=== PATIENT | female | born 1945 | race Caucasian/White ===

== ENCOUNTER → 2019-02-10 | Outpatient (CLI) | payer MEDICARE ==
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
== END | disposition home or self-care (01) ==
LOC: RAD 09:10
PROVIDERS: ATTEND Family Medicine
DX: M50.322 Other cervical disc degeneration at C5-C6 level (principal); M51.34 Other intervertebral disc degeneration, thoracic region; I70.0 Atherosclerosis of aorta
CPT/HCPCS: 71120; 72072

== ENCOUNTER → 2019-12-24 | Outpatient (CLI) | payer MEDICARE ==
--- NOTE | 2019-12-24 10:40 | RAD ---
CT scan of the chest without contrast 12/24/2019 CLINICAL HISTORY: Chest and sternal pain. TECHNIQUE: Unenhanced, contiguous, 0.625 mm axial sections were obtained through the chest and upper abdomen. 3 mm reconstructed sagittal, axial and coronal images were obtained. One or more of the following individualized dose reduction techniques were utilized for this study: 1. Automated exposure control. 2. Adjustment of the mA and/or kV according to patient size. 3. Use of iterative reconstruction technique. FINDINGS: Comparison is made to the patient's radiographs of the sternum dated 02/10/2019. Scattered atherosclerotic calcification of the thoracic aorta and its branches is noted. The thoracic aorta tapers normally. The heart is normal in size. Small calcified hilar and mediastinal lymph nodes are noted. A 6 mm calcification is seen involving the right lobe of the thyroid gland. The visualized thyroid gland is small but slightly heterogeneous. Small areas of scarring are seen involving the apices of both lungs. Subsegmental atelectasis is seen involving the medial aspect of the both lower lobes and the right middle lobe. A small area of probable scarring is involving left lower lobe. A 6 mm calcified granuloma is seen involving the right middle lobe. No area of consolidation is seen. No pneumothorax or pleural effusion is seen. Images through the upper abdomen demonstrate scattered atherosclerotic calcification of the abdominal aorta. Degenerative changes are seen involving the thoracic spine. The osseous structures are intact. No sternal fracture is seen. IMPRESSION: No acute abnormality is seen. Electronically signed by: Gagan Del Angel MD (12/24/2019 10:38 AM) [id number]
== END | disposition home or self-care (01) ==
LOC: CT 08:39
PROVIDERS: ATTEND Family Medicine
DX: S22.22XG Fracture of body of sternum, subsequent encounter for fracture with delayed healing (principal); I70.0 Atherosclerosis of aorta; J98.11 Atelectasis; M47.814 Spondylosis without myelopathy or radiculopathy, thoracic region; J84.10 Pulmonary fibrosis, unspecified; X58.XXXD Exposure to other specified factors, subsequent encounter
CPT/HCPCS: 71250

== ENCOUNTER → 2020-06-20 | Outpatient (CLI) | payer MEDICARE ==
[~2020-06-20] MED LIST: ALPR1TAB6 PO; AMLO-186 PO; LOSA50TA86 PO; NAPR-699 PO; PANT40TA6 PO
== END ==
LOC: LAB 13:00
PROVIDERS: ATTEND Nurse Anesthetist, Certified Registered
DX: Z01.812 Encounter for preprocedural laboratory examination (principal); R10.84 Generalized abdominal pain; Z20.822 Contact with and (suspected) exposure to COVID-19
CPT/HCPCS: U0003; U0005

== ENCOUNTER → 2020-06-23 | Day surgery (SDC) | payer MEDICARE ==
[~2020-06-23] MED LIST changes: +IPRATRPIUM/ALBUTEROL 0.5/2.5MG 3 ML NEBU. NEB PRN; +IV RINGERS SOLUTION,LACTATED 1,000 ML IV SCH; +LIDOCAINE 2% PF 5 ML VIAL. ONE; +MIDAZOLAM HCL PF 2 MG/2 ML VIAL. IV ONE; +ONDANSETRON PF 4 MG/2 ML VIAL. IV PRN; +PROPOFOL 10,000 MCG/ML (20ML) VIAL IV ONE
[2020-06-23 13:31] VITALS: BP 122/52
--- NOTE | 2020-06-28 14:09 | PATHOLOGY ---
[facility] Accession Number: [id number] . 01 Material submitted: . stomach - ANTRUM GASTRITIS BIOPSY . 01 Clinical history: . EGD . . 02 Diagnosis: Gastric biopsies, antrum: - Active chronic gastritis, moderate, with Helicobacter organisms identified. (JPM:[facility] 06/28/2020) [facility] 06/28/2020 1328 Local . 02 Comment: Sections of the gastric antral biopsy show congestion and moderate active chronic inflammation. A properly controlled immunoperoxidase stain for Helicobacter reveals focal Helicobacter organisms. (JPM:[facility] 06/28/2020) . Special stain performed: Immunoperoxidase for Helicobacter . . 02 Electronically signed: . Gustabo Chandler MD, Pathologist NPI- [id number] . 01 Gross description: . The specimen is received in formalin, labeled "Adrienne Kilpatrick", "antrum gastritis biopsy". Received are 2 segments of pale cash soft tissue measuring 0.2 and 0.4 cm. The specimen is entirely submitted in cassette A1.([facility]; 06/27/2020) ALEXANDRU/SANJAY 06/27/2020 1007 Local . 02 Pathologist provided ICD-10: K29.50, B96.81 . 02 CPT . 980495, [id number] Specimen Comment: A courtesy copy of this report has been sent to [phone], [phone] Specimen Comment: [id number] Specimen Comment: Report sent to / DR DOYLE Performed at: 01 [facility] [address], [place], [place] [id number] MD Moody Davis MD Phone: [phone] Performed at: 02 [facility] [address] [place], [place] [id number] MD Gustabo Chandler MD Phone: [phone]
== END | disposition home or self-care (01) ==
LOC: SURG 10:55
PROVIDERS: ATTEND Internal Medicine Gastroenterology
DX: R10.13 Epigastric pain (principal); K29.50 Unspecified chronic gastritis without bleeding; B96.81 Helicobacter pylori [H. pylori] as the cause of diseases classified elsewhere; K21.9 Gastro-esophageal reflux disease without esophagitis; K31.89 Other diseases of stomach and duodenum; I10 Essential (primary) hypertension; M19.90 Unspecified osteoarthritis, unspecified site; K44.9 Diaphragmatic hernia without obstruction or gangrene; Z87.891 Personal history of nicotine dependence; Z79.899 Other long term (current) drug therapy; Z88.8 Allergy status to other drugs, medicaments and biological substances; Z90.49 Acquired absence of other specified parts of digestive tract; Z88.1 Allergy status to other antibiotic agents; Z98.890 Other specified postprocedural states
CPT/HCPCS: 43239; J2001; J2704; J7120

== ENCOUNTER → 2020-06-30 | Outpatient (CLI) | payer MEDICARE ==
[2020-06-23 13:31] VITALS: BP 122/52
[~2020-06-30] MED LIST changes: -IPRATRPIUM/ALBUTEROL 0.5/2.5MG 3 ML NEBU. NEB PRN; -IV RINGERS SOLUTION,LACTATED 1,000 ML IV SCH; -LIDOCAINE 2% PF 5 ML VIAL. ONE; -MIDAZOLAM HCL PF 2 MG/2 ML VIAL. IV ONE; -ONDANSETRON PF 4 MG/2 ML VIAL. IV PRN; -PROPOFOL 10,000 MCG/ML (20ML) VIAL IV ONE
--- NOTE | 2020-06-30 14:12 | RAD ---
Ultrasound of the abdomen 06/30/2020 CLINICAL HISTORY: Abdominal pain. TECHNIQUE: A real-time ultrasound examination of the abdomen was performed. Multiple images were obta ined. FINDINGS: The gallbladder is contracted making it difficult to evaluate sonographically. No gallstone s are definitely visualized. The gallbladder wall thickness is within normal limits. No pericholecyst ic fluid is seen. The common bile duct measures 5 mm in diameter which is within normal limits. The liver is normal in size and echogenicity. It measures 12.8 cm in length. No focal abnormality of the liver is seen. The visualized portions of the pancreas, spleen and both kidneys are within normal limits. The abdominal aorta tapers normally. The inferior vena cava is within normal limits. No free fluid is seen. IMPRESSION: Negative study. Electronically signed by: Gagan Del Angel MD (06/30/2020 2:10 PM) [id number]
== END ==
LOC: US 09:46
PROVIDERS: ATTEND Internal Medicine Gastroenterology
DX: K82.0 Obstruction of gallbladder (principal)
CPT/HCPCS: 76700